=== PATIENT | female | born 1990 | race Hispanic/Latino ===

== ENCOUNTER → 2023-06-15 | Emergency (ER) | payer OTHER ==
[~2023-06-15] MED LIST: ACETAMINOPHEN 500 MG TAB ONE; D5 0.9 NS 1,000 ML IV ONE; DICYCLOMINE HCL 10 MG CAP ONE; MORPHINE 2 MG/ML SYR ONE; NA CHLORIDE 0.9% 1,000 ML ONE; NA CHLORIDE 0.9% 100 ML ONE; ONDANSETRON 4 MG (ODT) TAB ONE; PIPERACIL/TAZO 3.375 GM VIAL IV ONE; POTASSIUM CL SA 10 MEQ TAB PO ONE
--- OUTSIDE RECORDS SUMMARY | 2023-06-15 18:58 | XMS REPORT | Continuity of Care Document ---
Author Name Unknown Address [address] [place] [address] thconnect Address [address] [place] [address] Care Team Providers Care Costume Designer Name Role Phone Unavailable Unavailable Unavailable
[2023-06-15 20:47] LABS: Absolute Lymphocytes (CBC) 1.4 K/uL (0.7-4.9); Hematocrit 38.5 % (36.0-45.0); Lymphocytes % 7.7 % (15.3-44.8); MCV 91.9 fL (80-100); MPV 8.7 fL (7.6-11.3); Platelets 248 thou/uL (152-406); RBC Red Blood Cell Count 4.19 M/uL (3.86-4.86)
[2023-06-15 21:18] LABS: Specific Gravity 1.023 (1.005-1.030); Urine Bacteria None Seen /HPF (<20); Urine Bilirubin NEGATIVE (Negative); Urine Blood Negative (Negative); Urine Clarity Clear (Clear); Urine Color Light-Yellow (Yellow); Urine Glucose NEGATIVE (Negative); Urine Mucus Slight /HPF (None Seen); Urine Protein NEGATIVE (Negative); Urine RBC <5 /HPF (None Seen); Urine Urobilinogen Normal (Normal)
[2023-06-15 21:27] LABS: Albumin 3.9 g/dL (3.4-5.0); Bilirubin Total 0.6 mg/dL (0.2-1.0); Potassium 3.4 mEq/L (3.5-5.1); Protein, Total 7.9 g/dL (6.4-8.2)
--- NOTE | 2023-06-15 21:29 | RAD REPORT ---
EXAM DESCRIPTION: US - TRANSVAG OB - 06/15/2023 9:10 pm CLINICAL HISTORY: ABD PAIN COMPARISON: NMHEPATOBILIARY SYSTEM WITH PH dated 02/25/2012 TECHNIQUE: Sonographic grayscale and color flow images of a first-trimester were obtained through transvaginal approach. FINDINGS: A single live intrauterine is identified. [place]-rump length measures 22.6 millimeters, corresponding to gestational age of 9 weeks, 0 days. heart rate: 178 BPM. Crescentic heterogeneous hypodense collection caudal to the gestational sac, measuring 2.2 x 0.9 x 1. 3 cm. Normal yolk sac is visualized. Maternal ovaries are unremarkable apart from a dominant cyst or follicle, anechoic, measuring 2.6 cm in greatest dimension. No free fluid. IMPRESSION: 1. Single live intrauterine . 2. Calculated gestational age: 9 weeks, 0 days. Estimated due date by ultrasound: 01/18/2024. 3. Crescentic hypodense collection caudal to the gestational sac as above, concerning for a subchorio daisy hemorrhage. Close clinical follow-up, and consideration of short-term sonographic follow-up are r ecommended.
[2023-06-15 21:59] LABS: Blood Morphology Comment NOT SEEN (NOT SEEN); Platelet Estimate ADEQ; White Blood Cell Scan OK (OK)
--- NOTE | 2023-06-15 22:35 | EDPHYS ---
Physician Documentation [facility] Name: Phylicia Duran Age: 33 yrs Sex: Female : 1990 Arrival Date: 06/15/2023 Time: 18:54 Bed 12 Private MD: ED Physician Reggie Choi HPI: 06/15 19:26 This 33 yrs old Female presents to ER via Ambulatory with complaints of 8 sp4 Weeks , Abdominal Pain. 21:24 30-year-old female -0-0-3 LMP 04/13/2023, EGA 9 weeks 0 days by LMP presents with sp4 acute onset of lower abdominal pain associated with vomiting and chills. Patient's OB is at [facility]. Patient denied vaginal bleeding denied pain or burning with urination, denied lower urinary tract symptoms.. . [employer]ING [employer] MESH: 19:09 4, LMP 04/13/2023, Verified, EDC 01/18/2024, Gestational age from LMP: db 9 weeks 1 day Historical: - Allergies: 19:08 Latex, Natural Rubber; db - PMHx: 19:08 Rheumatoid arthritis; db - Immunization history:: Client reports receiving the 2nd dose of the Covid vaccine. - Social history:: Smoking status: Patient denies any tobacco usage or history of. - Family history:: not pertinent. ROS: 21:24 Constitutional: Positive chills, positive vomiting, positive lower abdominal pain, sp4 21:24 All other systems are negative, Exam: 21:24 Constitutional: This is a well developed, well nourished patient who is awake, alert, sp4 and in no acute distress. Head/Face: Normocephalic, atraumatic. Eyes: Pupils equal round and reactive to light, extra-ocular motions intact. Lids and lashes normal. Conjunctiva and sclera are not injected. Cornea within normal limits. Periorbital areas with no swelling, redness, or edema. ENT: Nares patent. No nasal discharge, no septal abnormalities noted. Tympanic membranes are normal and external auditory canals are clear. Oropharynx with no redness, swelling, or masses, exudates, or evidence of obstruction, uvula midline. Mucous membranes moist. Neck: Trachea midline, no thyromegaly or masses palpated, and no cervical lymphadenopathy. Supple, full range of motion without nuchal rigidity, or vertebral point tenderness. Chest/axilla: Normal chest wall appearance and motion. Nontender with no deformity. No lesions are appreciated. Cardiovascular: Regular rate and rhythm with a normal S1 and S2. No gallops, murmurs, or rubs. Normal PMI, no JVD. No pulse deficits. Respiratory: Lungs have equal breath sounds bilaterally, clear to auscultation and percussion. No rales, rhonchi or wheezes noted. No increased work of breathing, no retractions or nasal flaring. Abdomen/GI: Soft, with normal bowel sounds. No distension or tympany. No guarding . Positive lower abdominal tenderness bilaterally positive rebound tenderness Back: No spinal tenderness. No costovertebral tenderness. Skin: Warm, dry with normal turgor. Normal color with no rashes, no lesions, and no evidence of cellulitis. MS/ Extremity: Pulses equal, no cyanosis. Neurovascular intact. Full, normal range of motion. Neuro: Awake and alert, GCS 15, oriented to person, place, time, and situation. Cranial nerves II-XII grossly intact. Motor strength 5/5 in all extremities. Sensory grossly intact. Psych: Awake, alert, with orientation to person, place and time. Behavior, mood, and affect are within normal limits 22:20 Abdomen/GI: Exam reveals positive rebound tenderness in right lower quadrant. sp4 Suspicion of appendicitis, Vital Signs: 19:05 BP 131 / 67; Pulse 90; Resp 16; Temp 98.8(O); Pulse Ox 100% ; Weight 79.38 kg; Height 5 db ft. 3 in. ; 21:51 BP 136 / 72; Pulse 72; Resp 16; Pulse Ox 100% on R/A; jb4 22:48 BP 111 / 58; Pulse 68; Resp 16 S; Temp 98.8(O); Pulse Ox 100% on R/A; as6 19:05 Body Mass Index 31.00 (79.38 kg, 160.02 cm) db MDM: 19:32 Patient medically screened. sp4 22:30 Differential Diagnosis altered mental status, sepsis, flu, Appendicitis. Data reviewed: sp4 vital signs, nurses notes, old medical records, lab test result(s), CBC, Flu: negative hepatic panel, radiologic studies, ultrasound. Consideration of Admission/Observation Escalation of care including admission/observation considered. Management of patient was discussed with the following: Kidney Trimmer: Discussed with general surgery at [facility]. ED course: Acute lower abdominal pain associated with rebound tenderness on 2 separate exams associated with elevated white count with left shift. Patient has suspicion for appendicitis, however ultrasound to rule out appendicitis is not available and MRI coverage is not available at night. We requested transfer from [facility] for acute MRI abdomen to rule out appendicitis. Dr. Franck Puentes has accepted patient as ER to ER transfer fpr Further evaluation requested from [facility]. . 06/15 19:31 Order name: CBC with Diff; Complete Time: 22:19 sp4 06/15 19:31 Order name: CMP; Complete Time: 21:33 sp4 06/15 19:31 Order name: Lipase; Complete Time: 21:33 sp4 06/15 19:31 Order name: HCG-Quantitative; Complete Time: 21:33 sp4 06/15 19:31 Order name: Urinalysis W/Microscopic; Complete Time: 21:23 sp4 06/15 19:32 Order name: Influenza Screen (a \T\ B); Complete Time: 21:33 sp4 06/15 22:00 Order name: CBC Smear Scan; Complete Time: 22:19 EDMS 06/15 20:44 Order name: TRANSVAG OB; Complete Time: 21:33 EDMS 06/15 19:31 Order name: IV Saline Lock; Complete Time: 20:38 sp4 06/15 19:31 Order name: Labs collected and sent; Complete Time: 20:38 sp4 06/15 22:19 Order name: NPO; Complete Time: 22:47 sp4 Administered Medications: 20:48 Drug: Acetaminophen PO 1000 mg PO once Route: PO; jb4 22:59 Follow up: Response: No adverse reaction as6 20:48 Drug: Ondansetron PO 8 mg PO once Route: PO; jb4 23:00 Follow up: Response: No adverse reaction as6 20:48 Drug: Dicyclomine PO 20 mg PO once Route: PO; jb4 23:00 Follow up: Response: No adverse reaction as6 21:50 Drug: morphine IVP or IV 2 mg IVP once over 4 mins Route: IVP; Infused Over: 4 mins; jb4 Site: right antecubital; 23:00 Follow up: Response: No adverse reaction as6 22:47 Drug: Piperacillin-Tazobactam IVPB 3.375 grams IVPB once over 60 mins; (mix in NS 100 as6 mL) Route: IVPB; Infused Over: 60 mins; Site: right antecubital; 23:00 Follow up: Response: No adverse reaction; IV Status: Completed infusion; IV Intake: as6 100ml 22:47 Drug: NS 0.9% IV 1000 ml IV at 1000 bolus continuous Route: IV; Rate: 1000 bolus; Site: as6 right antecubital; 23:00 Follow up: Response: No adverse reaction; IV Status: Infusion continued upon transfer; as6 IV Intake: 200ml 22:48 Drug: D5-NS IV 1000 ml IV at 125 ml/hr continuous Route: IV; Rate: 125 ml/hr; Site: as6 right antecubital; 23:01 Follow up: Response: No adverse reaction; IV Status: Infusion continued upon transfer; as6 IV Intake: 30ml 22:48 Drug: Potassium Chloride PO 40 mEq PO once Route: PO; as6 22:59 Follow up: Response: No adverse reaction as6 Disposition Summary: 06/15/23 22:35 Transfer Ordered Notes[facility] Reason: Higher level of care sp4 Condition: Stable sp4 Problem: new sp4 Symptoms: have improved sp4 Accepting Physician: Franck Puentes MD Gen Surgery (06/15/23 23:02) as6 Diagnosis - Lower abdominal pain, unspecified sp4 - Lower abdominal pain, acute peritonitis, acute leukocytosis, suspected appendicitis sp4 - Single intrauterine EGA 9 weeks sp4 Forms: - Medication Reconciliation Form sp4 - SBAR form sp4 Signatures: Dispatcher [employer] EDUli Ashford RN RN jb4 Yann Chavarria RN RN as6 Madeleine Grossman RN RN db Reggie Choi MD MD sp4 Corrections: (The following items were deleted from the chart) 20:44 19:31 OB Limited+US.RAD.BRZ ordered. EDMS EDMS 22:08 21:41 Abdomen Limited+US.RAD.BRZ ordered. EDMS EDMS 22:21 21:24 Constitutional: This is a well developed, well nourished patient who is awake, sp4 alert, and in no acute distress. Head/Face: Normocephalic, atraumatic. Eyes: Pupils equal round and reactive to light, extra-ocular motions intact. Lids and lashes normal. Conjunctiva and sclera are not injected. Cornea within normal limits. Periorbital areas with no swelling, redness, or edema. ENT: Nares patent. No nasal discharge, no septal abnormalities noted. Tympanic membranes are normal and external auditory canals are clear. Oropharynx with no redness, swelling, or masses, exudates, or evidence of obstruction, uvula midline. Mucous membranes moist. Neck: Trachea midline, no thyromegaly or masses palpated, and no cervical lymphadenopathy. Supple, full range of motion without nuchal rigidity, or vertebral point tenderness. Chest/axilla: Normal chest wall appearance and motion. Nontender with no deformity. No lesions are appreciated. Cardiovascular: Regular rate and rhythm with a normal S1 and S2. No gallops, murmurs, or rubs. Normal PMI, no JVD. No pulse deficits. Respiratory: Lungs have equal breath sounds bilaterally, clear to auscultation and percussion. No rales, rhonchi or wheezes noted. No increased work of breathing, no retractions or nasal flaring. Abdomen/GI: Soft, non-tender, with normal bowel sounds. No distension or tympany. No guarding or rebound. No evidence of tenderness throughout. Back: No spinal tenderness. No costovertebral tenderness. Skin: Warm, dry with normal turgor. Normal color with no rashes, no lesions, and no evidence of cellulitis. MS/ Extremity: Pulses equal, no cyanosis. Neurovascular intact. Full, normal range of motion. Neuro: Awake and alert, GCS 15, oriented to person, place, time, and situation. Cranial nerves II-XII grossly intact. Motor strength 5/5 in all extremities. Sensory grossly intact. Psych: Awake, alert, with orientation to person, place and time. Behavior, mood, and affect are within normal limits sp4 23:02 22:35 Franck Puentes MD Gen Surgery sp4 as6
--- NOTE | 2023-06-15 22:35 | ER ---
Nurse's Notes [facility] Name: Phylicia Duran Age: 33 yrs Sex: Female : 1990 Arrival Date: 06/15/2023 Time: 18:54 Bed 12 Private MD: Diagnosis: Lower abdominal pain, unspecified;Lower abdominal pain, acute peritonitis, acute leukocytosis, suspected appendicitis;Single intrauterine EGA 9 weeks Presentation: 06/15 19:05 Chief complaint: Patient states: LOWER ABD PAIN STARTED TODAY AT 1500. STATES TOOK GAS db EX. STATES IS 8 WEEKS . STATES HAS SHARP LOWER ABD PAIN. STATES HAS VOMITING. Coronavirus screen: Vaccine status: Patient reports receiving the 2nd dose of the covid vaccine. Client denies travel out of the [place] in the last 14 days. At this time, the client does not indicate any symptoms associated with coronavirus-19. Ebola Screen: Patient negative for fever greater than or equal to 101.5 degrees Fahrenheit, and additional compatible Ebola Virus Disease symptoms Patient denies exposure to infectious person. Patient denies travel to an Ebola-affected area in the 21 days before illness onset. No symptoms or risks identified at this time. Initial Sepsis Screen: Does the patient meet any 2 criteria? No. Patient's initial sepsis screen is negative. Does the patient have a suspected source of infection? No. Patient's initial sepsis screen is negative. Risk Assessment: Do you want to hurt yourself or someone else? Patient reports no desire to harm self or others. Onset of symptoms was June 15, 2023. 19:05 Method Of Arrival: Ambulatory db 19:05 Acuity: BERNARDO 3 db Triage Assessment: 19:08 General: Appears in no apparent distress. comfortable, Behavior is calm, cooperative. db Pain: Complains of pain in abdomen and pelvis. GI: Abdomen is flat, Reports lower abdominal pain, nausea. 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 - Social history:: Smoking status: Patient denies any tobacco usage or history of. - Family history:: not pertinent. Screenin:51 [facility] ED Fall Risk Assessment (Adult) History of falling in the last 3 months, jb4 including since admission No falls in past 3 months (0 pts) Confusion or Disorientation No (0 pts). Abuse screen: Denies threats or abuse. Nutritional screening: No deficits noted. Tuberculosis screening: No symptoms or risk factors identified. Assessment: 20:51 Reassessment: Patient appears in no apparent distress at this time. Patient and/or jb4 family updated on plan of care and expected duration. Pain level reassessed. Patient is alert, oriented x 3, equal unlabored respirations, skin warm/dry/pink. 21:51 Reassessment: Patient appears in no apparent distress at this time. Patient and/or jb4 family updated on plan of care and expected duration. Pain level reassessed. Patient is alert, oriented x 3, equal unlabored respirations, skin warm/dry/pink. Report rebound tenderness on right lower abdomen. Provider aware. 22:48 Reassessment: Patient appears in no apparent distress at this time. Patient and/or as6 family updated on plan of care and expected duration. Pain level reassessed. Patient is alert, oriented x 3, equal unlabored respirations, skin warm/dry/pink. Vital Signs: 19:05 BP 131 / 67; Pulse 90; Resp 16; Temp 98.8(O); Pulse Ox 100% ; Weight 79.38 kg; Height 5 db ft. 3 in. ; 21:51 BP 136 / 72; Pulse 72; Resp 16; Pulse Ox 100% on R/A; jb4 22:48 BP 111 / 58; Pulse 68; Resp 16 S; Temp 98.8(O); Pulse Ox 100% on R/A; as6 19:05 Body Mass Index 31.00 (79.38 kg, 160.02 cm) db ED Course: 18:57 Patient arrived in ED. im 19:08 Triage completed. db 19:09 Arm band placed on Patient placed in waiting room. db 19:25 Reggie Choi MD is Attending Physician. sp4 20:30 Initial lab(s) drawn, by me, sent to lab. Inserted saline lock: 18 gauge in right jb4 antecubital area, using aseptic technique. Blood collected. 20:38 CBC with Diff Sent. jb4 20:38 CMP Sent. jb4 20:38 Lipase Sent. jb4 20:38 HCG-Quantitative Sent. jb4 20:38 Urinalysis W/Microscopic Sent. jb4 20:38 Influenza Screen (a \T\ B) Sent. jb4 20:51 Patient has correct armband on for positive identification. Bed in low position. Call jb4 light in reach. Side rails up X 1. 20:53 Uli Carlos, RN is Primary Nurse. jb4 21:11 TRANSVAG OB In Process Unspecified. EDMS 22:10 Initiated transfer to [facility], spoke with Oneyda. wm 22:33 Pt accepted for transfer to [facility] by Dr. Smith, Person per Oneyda Myers. wm 22:41 [facility] accepted for transport with ETA \T\ 2300. wm 23:01 No provider procedures requiring assistance completed. Patient transferred, IV remains as6 in place. 23:02 Provided Education on: need for transfer . as6 Administered Medications: 20:48 Drug: Acetaminophen PO 1000 mg PO once Route: PO; jb4 22:59 Follow up: Response: No adverse reaction as6 20:48 Drug: Ondansetron PO 8 mg PO once Route: PO; jb4 23:00 Follow up: Response: No adverse reaction as6 20:48 Drug: Dicyclomine PO 20 mg PO once Route: PO; jb4 23:00 Follow up: Response: No adverse reaction as6 21:50 Drug: morphine IVP or IV 2 mg IVP once over 4 mins Route: IVP; Infused Over: 4 mins; 4 Site: right antecubital; 23:00 Follow up: Response: No adverse reaction as6 22:47 Drug: Piperacillin-Tazobactam IVPB 3.375 grams IVPB once over 60 mins; (mix in NS 100 as6 mL) Route: IVPB; Infused Over: 60 mins; Site: right antecubital; 23:00 Follow up: Response: No adverse reaction; IV Status: Completed infusion; IV Intake: as6 100ml 22:47 Drug: NS 0.9% IV 1000 ml IV at 1000 bolus continuous Route: IV; Rate: 1000 bolus; Site: as6 right antecubital; 23:00 Follow up: Response: No adverse reaction; IV Status: Infusion continued upon transfer; as6 IV Intake: 200ml 22:48 Drug: D5-NS IV 1000 ml IV at 125 ml/hr continuous Route: IV; Rate: 125 ml/hr; Site: as6 right antecubital; 23:01 Follow up: Response: No adverse reaction; IV Status: Infusion continued upon transfer; as6 IV Intake: 30ml 22:48 Drug: Potassium Chloride PO 40 mEq PO once Route: PO; as6 22:59 Follow up: Response: No adverse reaction as6 Medication: 23:01 VIS not applicable for this client. as6 Intake: 23:00 IV: 100ml; Total: 100ml. as6 23:00 IV: 200ml; Total: 300ml. as6 23:01 IV: 30ml; Total: 330ml. as6 Outcome: 22:35 ER care complete, transfer ordered by MD. jackson 23:01 Transferred by ground EMS to [facility], Transfer form as6 completed. X-rays sent w/ patient. 23:01 Condition: stable 23:01 Instructed on the need for transfer, 23:02 Patient left the ED. as6 Signatures: Dispatcher [employer] EDUli Ashford, RN RN jb4 Elena Waters Ashby, RN RN as6 Madeleine Grossman, Reggie Will RN, MD MD sp4 Chasity Ruano
[2023-06-16 00:24] VITALS: TEMP 98.8; O2SAT 100
[2023-06-16 00:34] VITALS: BP 111/58
== END ==
LOC: ER 18:54
DX: O26.891 Other specified pregnancy related conditions, first trimester (principal); K65.9 Peritonitis, unspecified; D72.829 Elevated white blood cell count, unspecified; Z3A.09 9 weeks gestation of pregnancy; Z91.040 Latex allergy status; Z91.048 Other nonmedicinal substance allergy status
CPT/HCPCS: 85025; 81001; 36415; 84702; 83690; 80053; 87804 ×2; 76813; 96375; 96374; 99285; Q0162; J2543; J2270; J7042; J7030